=== PATIENT | male | born 1995 | race African-American/Black ===

== ENCOUNTER 2018-02-05 20:33 | Emergency (ER) | payer SELFPAY ==
[~2018-02-05] VITALS: Ht 190.5 cm; Wt 79.4 kg
[2018-02-05 20:50] VITALS: BP 139/90
[2018-02-05] MEDS ORDERED: Acetam/CODEINE 120mg/12mg per 5mL UD PO ONE ×2 (21:45→22:00)
[2018-02-05] MEDS ORDERED: Acetam/CODEINE 120mg/12mg per 5mL UD ONE (21:57)
== END 2018-02-05 23:00 | disposition home or self-care (01) ==
LOC: ER 20:44
DX: J40 Bronchitis, not specified as acute or chronic (principal); Z88.8 Allergy status to other drugs, medicaments and biological substances
CPT/HCPCS: 71046